=== PATIENT | female | born 1990 | race Caucasian/White ===

== ENCOUNTER 2020-12-30 09:51 | Observation (INO) | payer BC, OTHER ==
[~2020-12-30] VITALS: Ht 167.6 cm; Wt 107.5 kg
[~2020-12-30 09:51] MED LIST: COLACE 100MG C100 MG PO
[2020-12-30 11:02] LABS: HEMOGLOBIN 11.1 gm/dl (12.3-15.3); RED BLOOD COUNT 4.2 M/UL (4.00-5.10); WHITE BLOOD COUNT 9.1 K/UL (4.5-11.0)
[2020-12-30] MEDS ORDERED: ASPIRIN EC81 MG PO (11:20)
[2020-12-30] MEDS ORDERED: METFORMIN HCL1000 MG PO (11:20)
[2020-12-30] MEDS ORDERED: PRENATABS FA T1 EACH PO (11:22)
[2020-12-30 11:23] LABS: BUN/CREATININE RATIO 15 (0-10)
[2020-12-31 14:00] LABS: URINE TOTAL PROTEIN 6 mg/dl
== END 2020-12-31 15:15 | disposition home or self-care (01) ==
LOC: GENOP 09:51 → OB 10:32
PROVIDERS: Obstetrics & Gynecology; ADMIT Obstetrics & Gynecology
DX: O13.3 Gestational [pregnancy-induced] hypertension without significant proteinuria, third trimester (principal); O24.415 Gestational diabetes mellitus in pregnancy, controlled by oral hypoglycemic drugs; Z87.59 Personal history of other complications of pregnancy, childbirth and the puerperium; Z88.1 Allergy status to other antibiotic agents; Z79.84 Long term (current) use of oral hypoglycemic drugs; Z79.82 Long term (current) use of aspirin; Z79.899 Other long term (current) drug therapy; Z3A.30 30 weeks gestation of pregnancy
CPT/HCPCS: 36415; 59025; 80053; 81001; 82570; 82962; 83615; 84156; 84550; 85025; 96372; G0378; J0702

== ENCOUNTER 2021-01-18 16:34 | Outpatient (CLI) | payer BC, OTHER ==
[~2021-01-18 16:34] MED LIST changes: +ASPIRIN EC81 MG PO; +METFORMIN HCL1000 MG PO; +PRENATABS FA T1 EACH PO
== END 2021-01-18 19:52 | disposition home or self-care (01) ==
LOC: GENOP 16:34
DX: O47.03 False labor before 37 completed weeks of gestation, third trimester (principal); Z88.1 Allergy status to other antibiotic agents; Z79.82 Long term (current) use of aspirin; Z79.84 Long term (current) use of oral hypoglycemic drugs; Z3A.33 33 weeks gestation of pregnancy
CPT/HCPCS: 81001; 82962; G0463

== ENCOUNTER 2021-02-13 11:39 | Inpatient (IN) | payer BC ==
[~2021-02-13] VITALS: Ht 167.6 cm; Wt 107.0 kg
[2021-02-13 13:24] LABS: HEMOGLOBIN 11.5 gm/dl (12.3-15.3); RED BLOOD COUNT 4.69 M/UL (4.00-5.10); WHITE BLOOD COUNT 11.4 K/UL (4.5-11.0)
[2021-02-13 14:03] LABS: BUN/CREATININE RATIO 13 (0-10)
[2021-02-13] MEDS ORDERED: COLACE 100MG C100 MG PO (14:12)
[2021-02-13] MEDS ORDERED: IBUPROFEN600 MG PO (14:12)
[2021-02-13] MEDS ORDERED: HYDROCODON-ACE1 EAC6 PO (14:12)
[2021-02-15] MEDS ORDERED: SULFAMETHOXAZO1 EACH PO (10:08)
== END 2021-02-15 13:23 | disposition home or self-care (01) | DRG 787 ==
LOC: GENOP 11:39 → OB 12:52
PROVIDERS: ADMIT Obstetrics & Gynecology
PROC: 4A1HXCZ Monitoring of Products of Conception, Cardiac Rate, External Approach (ICD-10-PCS; 2021-02-13)
PROC: 10D00Z1 Extraction of Products of Conception, Low, Open Approach (ICD-10-PCS; principal; 2021-02-15)
DX: O34.211 Maternal care for low transverse scar from previous cesarean delivery (principal); O41.03X0 Oligohydramnios, third trimester, not applicable or unspecified; Z3A.37 37 weeks gestation of pregnancy; Z37.0 Single live birth; Z20.822 Contact with and (suspected) exposure to COVID-19; O24.425 Gestational diabetes mellitus in childbirth, controlled by oral hypoglycemic drugs; Z79.4 Long term (current) use of insulin
CPT/HCPCS: 36415; 80053; 81001; 82800; 82962; 85014; 85018; 85025; 90471; 90715; C9113; J0690; J1650; J1885; J2274; J2300; J2405; J2590; J3010; J7120; U0002